=== PATIENT | female | born 1945 | race Caucasian/White ===

== ENCOUNTER → 2018-07-30 11:49 | Outpatient (CLI) | payer OTHER, SELFPAY ==
--- NOTE | 2018-07-30 | DI.MG.S_ITS ---
BILATERAL DIGITAL SCREENING MAMMOGRAM 3D/2D WITH CAD: 07/30/2018 CLINICAL: Routine screening. Comparison is made to exams dated: 07/03/2015 mammogram, 06/20/2014 mammogram, and 06/01/2012 mammogram - [facility]. There are scattered fibroglandular elements in both breasts. Current study was also evaluated with a Computer Aided Detection (CAD) system. There are stable benign post operative findings in both breasts. No significant masses, calcifications, or other findings are seen in either breast. There has been no significant interval change. IMPRESSION: There is no mammographic evidence of malignancy. A 1 year screening mammogram is recommended. This exam was interpreted at Station ID: [id number]. NOTE: For mammograms, a report in lay terms will be sent to the patient. Approximately 15% of breast malignancies will not be visualized mammographically. In the management of a palpable breast mass, a negative mammogram must not discourage biopsy of a clinically suspicious lesion. Electronically Signed By: Vinny zarate/cuauhtemoc:07/30/2018 16:19:54 letter sent: Normal Exam ACR BI-RADS Category 2: Benign Finding(s) 3342F
== END ==
PROVIDERS: PCP Internal Medicine; Visit Provider Internal Medicine
DX: Z12.31 Encounter for screening mammogram for malignant neoplasm of breast (principal); M85.852 Other specified disorders of bone density and structure, left thigh; Z78.0 Asymptomatic menopausal state; Z82.62 Family history of osteoporosis
CPT/HCPCS: 77063; 77067; 77080

== ENCOUNTER → 2018-11-23 12:14 | Outpatient (CLI) | payer OTHER, SELFPAY ==
--- NOTE | 2018-11-23 14:26 | DIET.PN ---
Met for initial MNT. Pt wants help dealing with GI issues; also wants to lose weight. At current wt has more problems with back pain. Exercise: daily 30-45min, variety: pilates, nordic track, etc usual diet: small, frequent feedings. Includes daily 1/2 glass (2-3oz) wine; snacks on cheese with crackers/pretzels/etc. Foods all homemade. Avoids several foods r/t intolerance, but really isn't certain what bothers her. Sx: bloating, frequent constipation, sometimes, diarrhea, gassy Dx: GERD, osteopenia Ht: 5'4 Weight hx: Highest: 150# Lowest: 135# Current: 145# Goal: 135# Assessment: Current diet appears fairly well-balanced; eats a lot of whole foods. Does include a lot of cheeses with high carb snack foods. Symptoms pt describes possibly imply IBS- constipation dominant. Intervention: Identified foods in food record that may aggravate GERD, including wine, coffee, dark chocolate. Introduced to FODMAP diet and theory - gave FODMAP foods list Plan: Suggested to avoid sulfer foods - egg (yolks), cruciferous vegs Try low FODMAP diet to determine possible intolerances - suggested purchase book Free at last Pt to work on changes on her own; may call if need further f/u
== END ==
PROVIDERS: PCP Internal Medicine; Visit Provider Internal Medicine
DX: K21.9 Gastro-esophageal reflux disease without esophagitis (principal); M85.80 Other specified disorders of bone density and structure, unspecified site; M54.9 Dorsalgia, unspecified
CPT/HCPCS: 97802

== ENCOUNTER → 2019-08-03 15:27 | Outpatient (CLI) | payer OTHER, SELFPAY ==
--- NOTE | 2019-08-03 | DI.MG.S_ITS ---
BILATERAL DIGITAL SCREENING MAMMOGRAM 3D/2D WITH CAD: 08/03/2019 CLINICAL: Routine screening. Comparison is made to exams dated: 07/30/2018 mammogram - [facility], 07/03/2015 mammogram, and 06/20/2014 mammogram - [facility]. There are scattered fibroglandular elements in both breasts. Current study was also evaluated with a Computer Aided Detection (CAD) system. There are benign post operative findings in both breasts. No significant masses, calcifications, or other findings are seen in either breast. There has been no significant interval change. IMPRESSION: There is no mammographic evidence of malignancy. A 1 year screening mammogram is recommended. This exam was interpreted at Station ID: [id number]. NOTE: For mammograms, a report in lay terms will be sent to the patient. Approximately 15% of breast malignancies will not be visualized mammographically. In the management of a palpable breast mass, a negative mammogram must not discourage biopsy of a clinically suspicious lesion. Electronically Signed By: Nicolas rodas/cuauhtemoc:08/03/2019 16:28:40 letter sent: Normal Exam ACR BI-RADS Category 2: Benign Finding(s) 3342F
== END ==
PROVIDERS: PCP Internal Medicine; Visit Provider Internal Medicine
DX: Z12.31 Encounter for screening mammogram for malignant neoplasm of breast (principal)
CPT/HCPCS: 77063; 77067

== ENCOUNTER → 2021-06-17 13:09 | Outpatient (CLI) | payer OTHER, SELFPAY ==
[2021-06-17 16:29] LABS: COVID19 -Nasal RAPID Negative (Negative)
== END ==
PROVIDERS: PCP Internal Medicine; Visit Provider Nurse Practitioner Family
DX: Z20.822 Contact with and (suspected) exposure to COVID-19 (principal)
CPT/HCPCS: 87635

== ENCOUNTER → 2021-06-17 13:13 | Outpatient (CLI) | payer OTHER, SELFPAY ==
--- NOTE | 2021-06-17 | DI.RAD.S_ITS ---
PROCEDURE: XR CHEST 2V INDICATIONS: chest pain, cough, dyspnea TECHNIQUE: 2 views of the chest were acquired. COMPARISON: MR, T-SPINE WITHOUT CONTRAST, 05/21/2016, 15:06. [facility], CR, SPINE THORACIC 2VW, 05/07/2016, 15:52. FINDINGS: Surgical changes and devices: None. Lungs and pleura: Lungs are clear. No pleural effusions or pneumothorax. Eventration right hemidiaphragm. Mediastinum: Mediastinal contours are normal. Heart size is normal. Bones and chest wall: No suspicious bony abnormalities. Soft tissues appear unremarkable. IMPRESSION: No acute cardiopulmonary disease. Dictated by: Richard Odell [facility] Interpreted: Lizy Lombardo MD on 06/17/2021 at 13:45 Transcribed by: HANNA on 06/17/2021 at 13:46 Approved by: Lizy Lombardo M.D. on 06/17/2021 at 14:05
== END ==
PROVIDERS: PCP Internal Medicine; Referring Provider Internal Medicine; Visit Provider Internal Medicine
DX: R05 Cough (principal); R06.09 Other forms of dyspnea; R07.9 Chest pain, unspecified; Z20.822 Contact with and (suspected) exposure to COVID-19
CPT/HCPCS: 71046; 87635; C9803

== ENCOUNTER → 2021-06-19 10:06 | Outpatient (CLI) | payer OTHER, SELFPAY ==
--- NOTE | 2021-06-19 20:39 | DI.NM.S_ITS ---
DATE OF SERVICE: 06/19/2021 PROCEDURE: Exercise perfusion study. INDICATIONS: Shortness of breath, chest pain. RADIOPHARMACEUTICAL: 24.7 millicurie technetium-99m Myoview IV was injected at stress and 12.4 millicurie technetium-99m Myoview IV was injected at rest. CARDIAC STRESS: The patient underwent exercise perfusion study under the supervision of an attending staff. The patient walked on Noe protocol for 6 minutes and 10 seconds, achieved 97 percent of target heart rate, 7 METs of workload and functional aerobic impairment -18 percent. Baseline blood pressure 120/80. Peak blood pressure 150/100 mmHg. Baseline rhythm was sinus. During stress, some nonspecific ST changes seen. The patient has three-beats run of SVT and occasional PVCs during exercise without any obvious atrial fibrillation or sustained ventricular tachycardia. At 5 minutes into the exercise, patient had chest pain, which got resolved during recovery. RAW DATA: Adequate myocardial uptake. GATED STUDY: Stress LV ejection fraction 82 percent without any obvious wall motion abnormalities. Resting end-diastolic volume 68 mL. TID ratio 0.90, which is within normal limits. Lung/heart ratio 0.43, which is within normal limits. MYOCARDIAL PERFUSION SCAN: Stress supine, resting supine and stress prone images were compared to each other. There was normal myocardial perfusion. CONCLUSION: This is a normal myocardial perfusion study. Good exercise tolerance. Functional aerobic impairment -18 percent. Normal hemodynamic response. No obvious convincing ischemic changes or sustained arrhythmias, other than three-beats run of supraventricular tachycardia and occasional premature ventricular contractions during exercise. At 5 minutes into the exercise, patient had chest pain, which got resolved in the recovery. As far as perfusion scan is concerned, this is a low-risk myocardial perfusion scan. Correlate clinically. Laura Mcclendon - JUJU/rena/amy doc#: [id number]/job#: [id number] dd: 06/19/2021 17:53:00 dt: 06/19/2021 20:30:00 DICTATING MD/COPIES TO: Rohith Roberts MD COPIES MNE: MELANIE;
== END ==
PROVIDERS: PCP Internal Medicine; Referring Provider Internal Medicine; Visit Provider Internal Medicine
DX: R07.9 Chest pain, unspecified (principal); R06.9 Unspecified abnormalities of breathing
CPT/HCPCS: 78452; 93017; A9502

== ENCOUNTER → 2021-07-11 11:23 | Outpatient (CLI) | payer OTHER, SELFPAY ==
--- NOTE | 2021-07-11 11:24 | DI.MG.S_ITS ---
BILATERAL DIGITAL SCREENING MAMMOGRAM 3D/2D WITH CAD: 07/11/2021 CLINICAL: Routine screening. Comparison is made to exams dated: 08/03/2019 mammogram, 07/30/2018 mammogram - [facility], and 07/03/2015 mammogram - [facility]. There are scattered fibroglandular elements in both breasts. Current study was also evaluated with a Computer Aided Detection (CAD) system. There are benign post operative findings in both breasts. No significant masses, calcifications, or other findings are seen in either breast. There has been no significant interval change. IMPRESSION: BENIGN There is no mammographic evidence of malignancy. A 1 year screening mammogram is recommended. This exam was interpreted at Station ID: [id number]. NOTE: For mammograms, a report in lay terms will be sent to the patient. Approximately 15% of breast malignancies will not be visualized mammographically. In the management of a palpable breast mass, a negative mammogram must not discourage biopsy of a clinically suspicious lesion. Electronically Signed By: Vinny zarate/cuauhtemoc:07/11/2021 11:49:38 letter sent: Normal Exam ACR BI-RADS Category 2: Benign Finding(s) 3342F
--- NOTE | 2021-07-11 11:25 | DI.RAD.S_ITS ---
PROCEDURE: XR DEXA AXIAL SKELETON INDICATIONS: ROUTINE SCREENING COMPARISON: [facility], CR, XR DEXA AXIAL SKELETON, 07/30/2018, 13:17. FINDINGS: This blank DEXA report has been sent in error by the PACS system. The correct and complete report will be forthcoming in 1-2 days. Thank you for your patience and understanding. Dictated by: Emeka Alejandro M.D. on 07/11/2021 at 13:54 Approved by: Emeka Alejandro M.D. on 07/11/2021 at 13:54
== END ==
PROVIDERS: PCP Internal Medicine; Referring Provider Internal Medicine; Visit Provider Internal Medicine
DX: Z12.31 Encounter for screening mammogram for malignant neoplasm of breast (principal); Z78.0 Asymptomatic menopausal state; M85.89 Other specified disorders of bone density and structure, multiple sites; M85.852 Other specified disorders of bone density and structure, left thigh; M85.851 Other specified disorders of bone density and structure, right thigh
CPT/HCPCS: 77063; 77067; 77080

== ENCOUNTER → 2021-08-28 11:40 | Outpatient (CLI) | payer OTHER, SELFPAY ==
[2021-08-28 13:05] LABS: COVID19 -Nasal RAPID Negative (Negative)
== END ==
PROVIDERS: PCP Internal Medicine; Referring Provider Internal Medicine; Visit Provider Internal Medicine
DX: Z20.822 Contact with and (suspected) exposure to COVID-19 (principal)
CPT/HCPCS: 87635; C9803

== ENCOUNTER → 2021-08-29 10:46 | Outpatient (CLI) | payer OTHER, SELFPAY ==
--- NOTE | 2021-09-04 09:27 | PM.PFT.1 ---
Pulmonary Function Test Referral & Results Date Patient Seen: 08/29/21 Requesting provider: Mesfin Soto Results: The spirometry demonstrates an FVC of 2.48 L which is 89% of predicted. The FEV1 was measured at 1.89 L which is 91% of predicted. The FEV1/FVC ratio was 76 which is 101% of predicted. Following the administration of bronchodilator there was 11% improvement in FEV1 and a 48% improvement in FEF 25-75% Lung volumes show an SVC of 2.56 L which is 93% of predicted. The diffusing capacity was measured at 17.89 which is 73% of predicted. No hemoglobin value was provided, so no correction for potential anemia could be made, if appropriate. The maximum voluntary ventilation was reduced Interpretation: This study demonstrates normal spirometry although after bronchodilator there is some evidence of improvement in both FEV1 and FEF 25-75% which might suggest the possibility of minimal obstructive lung disease. There is a mild reduction diffusing capacity suggesting element of disease at the capillary alveolar level There is also reduction in maximum voluntary ventilation which in the absence of any significant spirometric abnormality suggest the presence of neuromuscular disease as well Clinical correlation suggested
== END ==
PROVIDERS: PCP Internal Medicine; Referring Provider Internal Medicine Critical Care Medicine; Visit Provider Internal Medicine Critical Care Medicine
DX: R06.02 Shortness of breath (principal); Z87.891 Personal history of nicotine dependence; J98.8 Other specified respiratory disorders
CPT/HCPCS: 94060; 94726; 94729

== ENCOUNTER → 2021-09-02 10:37 | Outpatient (CLI) | payer OTHER, SELFPAY ==
--- NOTE | 2021-09-02 10:43 | DI.CT.S_ITS ---
PROCEDURE: CT CHEST HIGH RESOLUTION INDICATIONS: Other congenital malformations of diaphragm TECHNIQUE: Noncontrast 1.0 and 5.0 mm thick contiguous axial sections from the pulmonary apex to the posterior costophrenic angles, with 7 mm thick coronal and sagittal MIP reformats. 1 mm thick dynamic expiratory images acquired through the upper, mid, and lower lungs. 1.0 mm thick axial sections acquired from the katelin to the posterior costophrenic angles in the prone end-inspiration position. For radiation dose reduction, the following was used: automated exposure control, adjustment of mA and/or kV according to patient size. COMPARISON: None. FINDINGS: Image quality: Excellent Lungs: Calcified 3 mm subpleural right middle lobe lung nodule, 2/177, 3 mm subpleural left lower lobe superior segment calcification, 2 mm subpleural anterolateral left upper lobe nodule, 2/104, and punctate left lower lobe calcification are likely granulomas. No other suspicious lung nodules or masses. No consolidations or ground-glass opacities. No significant subpleural reticulation. No pleural effusions. No pleural calcifications. Central and peripheral airways are normal. There is no air trapping on dynamic images. No bronchiectasis or bronchial wall thickening. Pleura: No pleural effusions or pneumothorax. Mediastinum: Heart size is normal. No pericardial effusion. Thoracic aorta and central pulmonary arteries are normal in size. Esophagus is normal in caliber. Bones and chest wall: No suspicious bony lesions. No vertebral body compression fractures. Abdomen: Mild hepatic steatosis. Visualized upper abdominal solid organs and bowel loops appear otherwise normal. IMPRESSION: 1. Several calcified lung nodules bilaterally, likely granulomas. 2. No other changes of acute or chronic interstitial lung disease. 3. Mild hepatic steatosis. Dictated by: Nargis Bee M.D. on 09/02/2021 at 11:55 Approved by: Nargis Bee M.D. on 09/02/2021 at 12:54
== END ==
PROVIDERS: PCP Internal Medicine; Referring Provider Internal Medicine Critical Care Medicine; Visit Provider Internal Medicine Critical Care Medicine
DX: Q79.1 Other congenital malformations of diaphragm (principal); R91.8 Other nonspecific abnormal finding of lung field; K76.0 Fatty (change of) liver, not elsewhere classified
CPT/HCPCS: 71250

== ENCOUNTER → 2021-09-05 10:36 | Outpatient (CLI) | payer OTHER, SELFPAY ==
--- NOTE | 2021-09-05 | DI.US.S_ITS ---
PROCEDURE: US ABDOMEN COMPLETE INDICATIONS: ABDOMINAL BLOATING TECHNIQUE: Real-time scanning was performed of the abdominal and retroperitoneal organs, with image documentation. COMPARISON: None. FINDINGS: Liver: The liver demonstrates mildly enlarged size. The liver demonstrates generalized prominently increased echogenicity. This decreases ultrasound sensitivity for detection of hepatic masses. Gallbladder: No findings of gallstones or sludge are seen. The gallbladder wall is not thickened, measuring 3 mm or less. No specific pericholecystic fluid is seen. The sonographic Bose sign is negative. Biliary ducts: Intrahepatic bile ducts are non-dilated. Extrahepatic bile duct caliber measures 5 mm. Normal is 6-7 mm or less in diameter, or 10 mm or less post-cholecystectomy. Pancreas: Visualized portions of the pancreas are sonographically normal. Spleen: Spleen is normal in size and homogeneous in echotexture. Kidneys: Kidneys are normal in size and echotexture. Right kidney measures 9.7 cm long; left kidney measures 11.7 cm long. No hydronephrosis or nephrolithiasis. No solid masses. Aorta: Visualized aorta is normal in caliber at less than 3 cm. Iliacs: Proximal common iliac arteries are normal in caliber at less than 2.5 cm. IVC: Intrahepatic inferior vena cava is patent. Miscellaneous: No free abdominal fluid. IMPRESSION: Enlarged, fatty liver. The gallbladder demonstrates a normal sonographic appearance. No biliary dilatation is seen. Dictated by: Lee Davila M.D. on 09/05/2021 at 11:02 Approved by: Lee Davila M.D. on 09/05/2021 at 11:03
== END ==
PROVIDERS: PCP Internal Medicine; Referring Provider Internal Medicine; Visit Provider Internal Medicine
DX: R14.0 Abdominal distension (gaseous) (principal); K76.0 Fatty (change of) liver, not elsewhere classified
CPT/HCPCS: 76700

== ENCOUNTER → 2023-07-08 13:50 | Outpatient (CLI) | payer OTHER, SELFPAY ==
--- NOTE | 2023-07-08 | DI.MG.S_ITS ---
BILATERAL DIGITAL SCREENING MAMMOGRAM 3D/2D WITH CAD: 07/08/2023 CLINICAL: Routine screening. Comparison is made to exams dated: 07/11/2021 mammogram, 08/03/2019 mammogram, 07/30/2018 mammogram - [facility], and 07/03/2015 mammogram - [facility]. There are scattered areas of fibroglandular density in both breasts (category b / 25%-50% glandular tissue). Current study was also evaluated with a Computer Aided Detection (CAD) system. No significant masses, calcifications, or other findings are seen in either breast. There has been no significant interval change. IMPRESSION: NEGATIVE There is no mammographic evidence of malignancy. A 1 year screening mammogram is recommended. Based on the Tyrer Cuzick model (a risk assessment model) the patient's lifetime risk is 2.1% and her 10 year risk is 0.0%. According to the ACR, ACS, and NCCN guidelines, an annual breast MRI exam along with mammogram is recommended if the patient's lifetime risk is 20% or greater. This exam was interpreted at Station ID: [id number]. NOTE: For mammograms, a report in lay terms will be sent to the patient. Approximately 15% of breast malignancies will not be visualized mammographically. In the management of a palpable breast mass, a negative mammogram must not discourage biopsy of a clinically suspicious lesion. Electronically Signed By: Osmel oneill/cuauhtemoc:07/08/2023 15:52:26 letter sent: Normal Exam ACR BI-RADS Category 1: Negative 3341F
--- NOTE | 2023-07-08 | DI.RAD.S_ITS ---
Bone Density Report Name: OTIS ACOSTA Age: 78 Sex: Female Ethnicity: White Date of : 1945 Indication: osteopenia; Referring Provider: PASCUAL EVANS Study: Bone densitometry was performed. Exam Date: July 08, 2023 Accession number: [id number] Bone Density: Region BMD T-score Z-score Classification AP Spine(L1-L4) 0.876 -1.6 1.0 Osteopenia Femoral Neck (Left) 0.614 -2.1 0.1 Osteopenia Total Hip (Left) 0.784 -1.3 0.7 Osteopenia Femoral Neck (Right) 0.635 -1.9 0.3 Osteopenia Total Hip (Right) 0.790 -1.2 0.7 Osteopenia Total Hip Mean 0.787 -1.3 0.7 Osteopenia World Health Organization criteria for BMD impression classify patients as: Normal (T-score at or above -1.0), Osteopenia (T-score between -1.0 and -2.5), or Osteoporosis (T-score at or below -2.5). 10-year Fracture Risk(1): Major Osteoporotic Fracture 15% Hip Fracture 4.3% Reported Risk Factors: [place] (), Neck BMD=0.614, BMI=24.9 (1) FRAX(R) Version 3.08. Fracture probability calculated for an untreated patient. Fracture probability may be lower if the patient has received treatment. Previous Exams: -- Region Exam Age BMD T-score BMD Change BMD Change Date g/cm2 vs Baseline vs Previous -- AP Spine (L1-L4) 07/08/2023 78 0.876 -1.6 -0.066 (-7.0%)# -0.066 (-7.0%)# 07/11/2021 76 0.942 -1.0 Total Hip(Left) 07/08/2023 78 0.784 -1.3 -0.027 (-3.3%)# -0.027 (-3.3%)# 07/11/2021 76 0.811 -1.1 Total Hip(Right) 07/08/2023 78 0.790 -1.2 0.001 (0.1%)# 0.001 (0.1%)# 07/11/2021 76 0.789 -1.3 -- *Denotes significance at 95% confidence level, LSC for AP Spine = 0.022 g/cm2, LSC for Total Hip = 0.027 g/cm2 # Denotes dissimilar scan types or analysis methods Impression: The patient has low bone mass, based on the Left Femoral Neck T-score. The patient has an estimated ten-year risk of hip fracture of 4.3% and an estimated ten-year risk of major fracture of 15%, based on the WHO FRAX algorithm. No significant bone loss was observed. Discussion: BONE DENSITY IS LOW AT ONE OR MORE SKELETAL SITES. THE PATIENT'S BMD AND CLINICAL RISK FACTORS CONTRIBUTE TO THIS PATIENT'S INCREASED RISK OF FRACTURE. This patient's lowest T-score is low at one or more skeletal sites. It meets the World Health Organization's (WHO) criteria for low bone mass (T-score between -1.0 and -2.5). The patient's 10-year risk of hip fracture as calculated by FRAX exceeds the threshold where pharmacological therapy is recommended by the National Osteoporosis Foundation (NOF). However, all treatment decisions require clinical judgment and consideration of individual patient factors, including patient preferences, comorbidities, previous drug use, risk factors not captured in the FRAX model (e.g., frailty, falls, vitamin D deficiency, increased bone turnover, interval significant decline in bone density) and possible under or overestimation of fracture risk by FRAX. The patient should follow a healthful lifestyle (good nutrition with adequate calcium and vitamin D, and appropriate weight-bearing exercise). Follow-Up: Consider a repeat BMD and Vertebral Fracture Assessment (VFA) exam in 2 years or sooner if medically necessary, to reassess this patient's status. Reported by: LALITHA FENG M.D on 07/08/2023 2:11:00 PM.
== END ==
PROVIDERS: PCP Internal Medicine; Referring Provider Internal Medicine; Visit Provider Internal Medicine
DX: Z12.31 Encounter for screening mammogram for malignant neoplasm of breast (principal); M85.89 Other specified disorders of bone density and structure, multiple sites
CPT/HCPCS: 77063; 77067; 77080

== ENCOUNTER → 2023-12-10 12:00 | Outpatient (CLI) | payer OTHER, SELFPAY ==
--- NOTE | 2023-12-10 12:02 | DI.MRI.S_ITS ---
PROCEDURE: MR LUMBAR SPINE WO CON INDICATIONS: LUMBAR RADICULOPATHY TECHNIQUE: Noncontrast sagittal T1 spin echo and T2 fast echo, sagittal STIR, and T2 fast spin echo through the lumbar spine. In cases with scoliosis, additional coronal T2 fast spin echo may be performed. COMPARISON: [facility], CR, XR LUMBAR SPINE 2 OR 3 VIEWS, 12/01/2023, 10:54. FINDINGS: Image quality: Excellent. Alignment and Curvature: There is normal bony alignment. Bone Marrow: Marrow is of normal overall signal. No acute vertebral body compression fractures. Spinal Cord: Conus medullaris terminates at the L1 level. Visualized cord demonstrates normal signal and size. Paraspinous Soft Tissues: No paravertebral masses. Discs: Multilevel disc desiccation most severe at L4-5. T12-L1: No disc bulge, spinal stenosis or foraminal narrowing. L1-L2: Mild disc bulge without spinal stenosis. Minimal to mild left foraminal narrowing with facet and ligamentum flavum hypertrophy. L2-L3: Mild disc bulge with minimal spinal stenosis. Mild left foraminal narrowing with facet and ligamentum flavum hypertrophy. L3-L4: Mild disc bulge with wwct-hv-gioxcheb spinal stenosis. There is a superimposed extrusion measuring approximately 8 mm with significant compromise of the left lateral recess. There is approximate 1.6 cm caudal migration of the extruded fragment. Moderate left and minimal to mild right foraminal narrowing with facet and ligamentum flavum hypertrophy. L4-L5: Mild disc bulge with moderate to severe spinal stenosis. Moderate to severe bilateral foraminal narrowing with facet and ligamentum flavum hypertrophy. L5-S1: Mild disc bulge with mild spinal stenosis. Minimal left foraminal narrowing with facet and ligamentum flavum hypertrophy. IMPRESSION: Multilevel disc bulges. Superimposed extrusion with caudal migration at L4-5 causing compromise of the lateral recess as above. Multilevel foraminal narrowing most severe at L4-5 secondary to facet/ligamentum flavum arthropathy. Dictated by: Lizy Lombardo M.D. on 12/10/2023 at 15:28 Approved by: Lizy Lombardo M.D. on 12/10/2023 at 15:34
== END ==
LOC: MRI 12:00
PROVIDERS: PCP Internal Medicine; Referring Provider Orthopaedic Surgery Orthopaedic Surgery of the Spine; Visit Provider Orthopaedic Surgery Orthopaedic Surgery of the Spine
DX: M47.26 Other spondylosis with radiculopathy, lumbar region (principal); M47.27 Other spondylosis with radiculopathy, lumbosacral region; M48.061 Spinal stenosis, lumbar region without neurogenic claudication; M48.07 Spinal stenosis, lumbosacral region; M51.16 Intervertebral disc disorders with radiculopathy, lumbar region; M51.17 Intervertebral disc disorders with radiculopathy, lumbosacral region
CPT/HCPCS: 72148

== ENCOUNTER → 2023-12-22 14:17 | Outpatient (CLI) | payer OTHER, SELFPAY ==
[2023-12-22 14:56] LABS: Add Manual Diff / Slide Review NO; Basophils Absolute Auto 0 /uL (0-100); Basophils Percent Auto 0.6 % (0-2); Eosinophils Absolute Auto 200 /uL (0-450); Eosinophils Percent Auto 2.5 % (2-4); Hemoglobin 14.2 g/dL (12.0-16.0); Lymphocytes Absolute Auto 2000 /uL (1100-4500); Lymphocytes Percent Auto 32.3 % (25-40); Mean Corpuscular HGB Conc 34.6 % (30-36); Mean Corpuscular Hemoglobin 30.8 PG (26-34); Monocytes Absolute Auto 400 /uL (0-900); Monocytes Percent Auto 6.9 % (3-14); Neutrophils Absolute Auto 3600 /uL (1500-7000); Neutrophils Percent Auto 57.7 % (50-75); Platelet Count 311 X10^3/uL (150-400); Red Blood Cell Count 4.61 X10^6/uL (4.0-5.2); Red Cell Distribution Width 13.1 % (11.6-14.8); White Blood Cell Count 6.3 X10^3/uL (4.5-11.0)
[2023-12-22 15:19] LABS: BUN Creatinine Ratio 14.5 (6-22); Blood Urea Nitrogen 12 mg/dL (7-17); Calcium 9.8 mg/dL (8.4-10.2); Carbon Dioxide 32 mmol/L (22-32); Chloride 105 mmol/L (98-107); Estimated Glomerular Filt Rate > 60 mL/min (>60); Glucose 97 mg/dL (80-110); HEMOLYSIS < 15 (0-50); Potassium 3.5 mmol/L (3.4-5.1); Sodium 139 mmol/L (137-145)
== END ==
PROVIDERS: PCP Internal Medicine; Referring Provider Orthopaedic Surgery Orthopaedic Surgery of the Spine; Visit Provider Orthopaedic Surgery Orthopaedic Surgery of the Spine
DX: Z01.818 Encounter for other preprocedural examination (principal); Z01.812 Encounter for preprocedural laboratory examination
CPT/HCPCS: 36415; 80048; 85025; 93005

== ENCOUNTER 2024-01-13 08:42 | Day surgery (SDC) | payer OTHER, SELFPAY ==
[2024-01-04 14:01] VITALS: BMI 24.5
[2024-01-13] VITALS (9 sets, daily range): BP systolic 111–169; BP diastolic 70–95; PULSE 74–92; RESP 12–16; TEMP 36.1–36.3; O2SAT 92–99; BMI 24.5
--- NOTE | 2024-01-13 | DI.RAD.S_ITS ---
PROCEDURE: XR LUMBAR SPINE 2-3V INDICATIONS: L3-4 LAMINECTOMY TECHNIQUE: Two intraoperative fluoroscopic views of the lumbar spine were acquired. COMPARISON: None. FINDINGS: There is instrument to the left of midline at the L3-4 disc level. IMPRESSION: Intraoperative fluoroscopy for L3-4 laminectomy. Dictated by: Nargis Bee M.D. on 01/13/2024 at 16:00 Approved by: Nargis Bee M.D. on 01/13/2024 at 16:01
--- NOTE | 2024-01-13 10:13 | PM.PREOP ---
Pre-operative Note Interval Note History & Physical reviewed/Exam performed by Physician: Yes Changes to H&P: No
[2024-01-13] MEDS: CEFAZOLIN 2 GM/100 ML PREMIX 100 ML IV (10:55)
--- NOTE | 2024-01-13 11:08 | SUR.OPER ---
Prone on spine table, head in foam head support, padded chest and pelvic supports, gel pad at knees, lower legs supported by pillows; nipples, genitalia and toes free of pressure, arms secured on foam padded arm boards at <90 degrees abduction. Tape over blanket at thigh secured to table.
--- NOTE | 2024-01-13 11:56 | PM.OP.1 ---
Operative Date/Time/Diagnoses Date of procedure: 01/13/24 Time of procedure: 11:00 Pre-op diagnosis: 1. L3-4 disc herniation 2. L3-4 radiculopathy Post-op diagnosis: same Procedure & Clinicians Procedure: 1. L3-4 left microdiscectomy 2. Utilization of microsurgical technique and operating microscope Same procedure as scheduled: Yes Indications: Patient has been having recent onset of back pain and worsening lumbar radiculopathy to her right lower extremity. She has MRI showing L3-4 disc extrusion with lateral recess stenosis and nerve root impingement correlating with her symptoms and physical exam findings. Patient failed multiple conservative management with worsening pain weakness and numbness in her lower extremity. Patient has been having difficulty performing activity of daily living. After discussing risks benefits of treatment options, patient elected proceed with surgery. Surgeon: Ruby Dobbins Container Maker: Michelle Lombardo Click Yes if Unassisted: No Anesthesia Type: General Operative Notes Closure Type: primary Estimated Blood Loss (mL): 5 Blood products transfused: none Procedure in detail: Patient was seen in the preoperative area. Risks and benefits of the surgery was discussed with the patient. Informed consent was obtained from the patient and placed in the chart. Surgical site was marked. Patient was taken to the operative room. General anesthesia was administered. Prophylactic antibiotic was given to the patient less than 30 min before the incision was made. Patient was placed into a prone position on the K[place] table. Patient's back was then prepped and draped in the sterile fashion. Time-out was performed at this time. Using AP and lateral C-arm imaging the interval between L3-4 was identified and marked on patient's back. A 1 inch incision 1 in from midline was made on the left side. The fascia was incised in line with skin incision. Globus MARS retractors was placed inside the incision and docked onto the L3 lamina. Using microsurgical technique and operating microscope, a L3 laminotomy was performed using a Kerrison rongeur. Liagamentum flavum was resected at the site of the laminotomy. The disc space at L3-4 was identified. Microdiscectomy was performed by incising the annulus with #11 blade. Microcurettes and pituitary was used to removed herniated disc fragments of disc from the epidural space. The patient was found to have extruded disc fragment migrated caudally at L3-4 level on the left causing lateral recess and nerve root impingement which was fully decompressed after the microdiskectomy was completed. After the microdiskectomy was completed, the area medial lateral superior and inferior to the area of the microdiskectomy was inspected and explored using a micro curette. No other impinging structure was identified. The wound was then irrigated with sterile normal saline. 40 mg Depo-Medrol was placed into the epidural space. The deep fascia was closed with 1-0 Vicryl. The subcutaneous tissue was closed with 2-0 Vicryl. The skin was closed with skin parisa. Patient tolerated the procedure well. There were no complications. Patient was transferred recovery room in stable condition. Complications: none Post-operative Condition: stable Disposition: PACU Plan for aftercare: Discharge to home
[2024-01-13] MEDS: BUPIVACAINE 0.25% (PF) 30 ML, EPINEPHrine 0.15 MG INJ (12:18)
[2024-01-13] MEDS: ACETAMINOPHEN IV 1,000 MG/100 ML VIAL 400 MG IV (12:32)
== END 2024-01-13 13:35 | disposition home or self-care (01) ==
PROVIDERS: PCP Internal Medicine; Referring Provider Orthopaedic Surgery Orthopaedic Surgery of the Spine; Visit Provider Orthopaedic Surgery Orthopaedic Surgery of the Spine
PROC: (CPT 63030; principal; 2024-01-13 10:15)
DX: M51.26 Other intervertebral disc displacement, lumbar region (principal); M54.16 Radiculopathy, lumbar region
CPT/HCPCS: 63030; 72100; 76000; J0136; J0171; J0330; J0690; J1100; J2405; J2704; J2920; J3010

== ENCOUNTER → 2024-08-24 10:48 | Outpatient (CLI) | payer OTHER, SELFPAY ==
--- NOTE | 2024-08-24 10:50 | DI.MG.S_ITS ---
BILATERAL DIGITAL SCREENING MAMMOGRAM 3D/2D WITH CAD: 08/24/2024 CLINICAL: Routine screening. Comparison is made to exams dated: 07/08/2023 mammogram, 07/11/2021 mammogram, 08/03/2019 mammogram, 07/30/2018 mammogram - [facility], and 07/03/2015 mammogram - [facility]. There are scattered areas of fibroglandular density (category b / 25%-50% glandular tissue). Current study was also evaluated with a Computer Aided Detection (CAD) system. There are benign post operative findings in both breasts. No significant masses, calcifications, or other findings are seen in either breast. There has been no significant interval change. IMPRESSION: BENIGN There is no mammographic evidence of malignancy. A 1 year screening mammogram is recommended. Based on the Tyrer Cuzick model (a risk assessment model) the patient's lifetime risk is 1.8% and her 10 year risk is 0.0%. According to the ACR, ACS, and NCCN guidelines, an annual breast MRI exam along with mammogram is recommended if the patient's lifetime risk is 20% or greater. This exam was interpreted at Station ID: [id number]. NOTE: For mammograms, a report in lay terms will be sent to the patient. Approximately 15% of breast malignancies will not be visualized mammographically. In the management of a palpable breast mass, a negative mammogram must not discourage biopsy of a clinically suspicious lesion. Electronically Signed By: Maki Gerard M.D., Ph.D. [email or web address]:08/24/2024 16:59:52 letter sent: Normal Exam ACR BI-RADS Category 2: Benign
== END ==
PROVIDERS: PCP Family Medicine; Referring Provider Family Medicine; Visit Provider Family Medicine
DX: Z12.31 Encounter for screening mammogram for malignant neoplasm of breast (principal)
CPT/HCPCS: 77063; 77067

== ENCOUNTER → 2025-07-10 11:56 | Outpatient (CLI) | payer OTHER, SELFPAY ==
--- NOTE | 2025-07-10 11:57 | DI.RAD.S_ITS ---
PROCEDURE: XR DEXA AXIAL SKELETON INDICATIONS: Osteopenia after menopause COMPARISON: [facility], , XR DEXA AXIAL SKELETON, 07/08/2023, 14:03. [facility], CR, XR DEXA AXIAL SKELETON, 07/11/2021, 12:08. FINDINGS: Lumbar Spine: Bone mineral density 0.871 g/cm2, T score -1.6, prior T-score of -1.6. Left Femoral Neck: Bone mineral density 0.617 g/cm2, T score -2.1. Left Hip: Bone mineral density 0.789 g/cm2, T score -1.3, prior T-score of -1.3. Fracture Risk Calculation (when applicable): 10-year fracture risk of a major osteoporotic fracture 16 percent and of a hip fracture 4.8 percent. (T score greater or equal to -1.0 to: NORMAL) (T score from -1.1 to -2.4: OSTEOPENIA) (T score less than or equal to -2.5: OSTEOPOROSIS) IMPRESSION: Osteopenia, comparison cannot be made due to differences in technique, however the prior T-scores are reported. Follow-up guidelines as follows: Osteoporosis: Consider a repeat DEXA and Vertebral Fracture Assessment (VFA) exam in 2 years or sooner if medically necessary, to reassess this patient's status. Osteopenia: Consider a repeat DEXA in 2-3 years to reassess this patient's status, or if there is a new clinical indication. Normal: Consider a repeat DEXA in 5 years or sooner, or if there is a new clinical indication. All treatment decisions require clinical judgment and consideration of individual patient factors, including patient preferences, comorbidities, previous drug use, risk factors not captured in the FRAX model (e.g., frailty, falls, vitamin D deficiency, increased bone turnover, interval significant decline in bone density ) and possible under- or over-estimation of fracture risk by FRAX. In addition, the NOF Guide recommends that FDA-approved medical therapies be considered in postmenopausal women and men age >= 50 years with a: * Hip or vertebral (clinical or morphometric) fracture * T-score of <=-2.5 at the spine or hip * Ten-year fracture probability by FRAX of >= 3% for hip fracture or >=20% for major osteoporotic fracture. Dictated by: Sagar Leal M.D. on 07/10/2025 at 16:29 Approved by: Sagar Leal M.D. on 07/10/2025 at 16:41
== END ==
LOC: RAD 11:56
PROVIDERS: PCP Family Medicine; Referring Provider Family Medicine; Visit Provider Family Medicine
DX: M85.89 Other specified disorders of bone density and structure, multiple sites (principal); Z78.0 Asymptomatic menopausal state
CPT/HCPCS: 77080